=== PATIENT | male | born 1990 | race Caucasian/White ===

== ENCOUNTER 2023-10-12 17:46 | Emergency (ER) | payer BC ==
--- NOTE | 2023-10-12 18:00 | ED ---
General Adult HPI - General Stated complaint: Nose bleed Time Seen by Provider: 10/12/23 18:00 - History of Present Illness Initial comments: 33-year-old male presents to the ED with a chief complaint of epistaxis. Patient reports onset 40 minutes prior to arrival. No trauma. Patient is not on any blood thinners. No lightheadedness or dizziness. No other complaints at this time. - Related Data Allergies Allergy/AdvReac Type Severity Reaction Status Date / Time bacitracin Allergy Rash/Hives Verified 10/12/23 18:02 [From Neosporin ([id number])] neomycin Allergy Rash/Hives Verified 10/12/23 18:02 [From Neosporin ([id number])] polymyxin B Allergy Rash/Hives Verified 10/12/23 18:02 [From Neosporin ([id number])] Review of Systems ROS Statement: Those systems with pertinent positive or pertinent negative responses have been documented in the HPI. ROS Other: All systems not noted in ROS Statement are negative. General Exam - General Exam Comments Initial Comments: Visual Physical Exam Vital signs reviewed General: Well-appearing, nontoxic, no acute distress. Head: Normocephalic, atraumatic Eyes: PERRLA, EOMI ENT: Airway patent Chest: Nonlabored breathing Skin: No visual rash, normal skin tone Neuro: Alert and oriented 3 Musculoskeletal: No gross abnormalities General appearance: alert, in no apparent distress Eye exam: Present: normal appearance ENT exam: Present: other (Dried blood of the right nare. No active bleeding.) Neck exam: Present: normal inspection Respiratory exam: Present: normal lung sounds bilaterally Cardiovascular Exam: Present: regular rate, normal rhythm GI/Abdominal exam: Present: soft Neurological exam: Present: alert, oriented X3 Skin exam: Present: warm, dry Course Vital Signs 10/12/23 10/12/23 18:00 18:09 Temperature 98.2 F Pulse Rate 100 105 H Respiratory 20 Rate Blood Pressure 145/103 144/83 O2 Sat by Pulse 98 Oximetry Medical Decision Making - Medical Decision Making Quicknote portion performed. Signed Paulie Garber PA-C Was pt. sent in by a medical professional or institution (CHARISSE Arreguin, RETAIL MANAGER [employer], urgent care, hospital, or intermediate...) When possible be specific @ -No Did you speak to anyone other than the patient for history (EMS, parent, family, police, friend...)? What history was obtained from this source @ -No Did you review nursing and triage notes (agree or disagree)? Why? @ -I reviewed and agree with nursing and triage notes Were old charts reviewed (outside hosp., previous admission, EMS record, old EKG, old radiological studies, urgent care reports/EKG's, intermediate records)? Report findings @ -No old charts were reviewed Differential Diagnosis (chest pain, altered mental status, abdominal pain women, abdominal pain men, vaginal bleeding, weakness, fever, dyspnea, syncope, headache, dizziness, GI bleed, back pain, seizure, CVA, palpatations, mental health, musculoskeletal)? @ -Not applicable EKG interpreted by me (3pts min.). @ -None X-rays interpreted by me (1pt min.). @ -None done CT interpreted by me (1pt min.). @ -None done U/S interpreted by me (1pt. min.). @ -None done What testing was considered but not performed or refused? (CT, X-rays, U/S, labs)? Why? @ -None What meds were considered but not given or refused? Why? @ -None Did you discuss the management of the patient with other professionals (professionals i.e. , PA, RETAIL MANAGER [employer], lab, RT, psych nurse, social service director, stockholder, teacher, retail loss prevention officer, shelter case manager)? Give summary @ -No Was smoking cessation discussed for >3mins.? @ -No Was critical care preformed (if so, how long)? @ -No Were there social determinants of health that impacted care today? How? (Homelessness, low income, unemployed, alcoholism, drug addiction, transportation, low edu. Level, literacy, decrease access to med. care, shelter, rehab)? @ -No Was there de-escalation of care discussed even if they declined (Discuss DNR or withdrawal of care, Hospice)? DNR status @ -No What co-morbidities impacted this encounter? (DM, HTN, Smoking, COPD, CAD, Cancer, CVA, ARF, Chemo, Hep., AIDS, mental health diagnosis, sleep apnea, mor bid obesity)? @ -None Was patient admitted / discharged? Hospital course, mention meds given and route, prescriptions, significant lab abnormalities, going to OR and other pertinent info. @ -Discharge Patient initially seen by myself in triage. 33-year-old male presented to the ED with a chief complaint of epistaxis. No trauma. Does report history of nosebleeds. Not on any blood thinners. I saw the patient in triage and at that time he did have active bleeding from the right nostril. On exam, bleed did appear anterior in nature. Nose clamp was applied. After continuous trial without nose clamp for an hour, no recurrence of epistaxis. At this time vital signs stable afebrile. Discharged home in stable condition. Discussed return precautions with patient who verbalized agreement. Undiagnosed new problem with uncertain prognosis? @ -No Drug Therapy requiring intensive monitoring for toxicity (Heparin, Nitro, Insulin, Cardizem)? @ -No Were any procedures done? @ -No Diagnosis/symptom? @ -Epistaxis, now resolved Acute, or Chronic, or Acute on Chronic? @ -Acute Uncomplicated (without systemic symptoms) or Complicated (systemic symptoms)? @ -Uncomplicated Side effects of treatment? @ -No Exacerbation, Progression, or Severe Exacerbation? @ -No Poses a threat to life or bodily function? How? (Chest pain, [place], [place], pneumonia, PE, COPD, DKA, ARF, appy, cholecystitis, CVA, Diverticulitis, Homicidal, Suicidal, threat to staff... and all critical care pts) @ -No Disposition Clinical Impression: Epistaxis Disposition: HOME SELF-CARE Condition: Good Instructions (If sedation given, give patient instructions): Nosebleed (ED) Additional Instructions: Please return to the Emergency Department if symptoms worsen or any other concerns. Follow-up with your primary care provider. Please do not manually remove the clot. Avoid picking at your nose. Is patient prescribed a controlled substance at d/c from ED?: No Referrals: None,Stated [Primary Care Provider] - 1-2 days Time of Disposition: 19:21
[2023-10-12 18:25] VITALS: TEMP 98.2
[2023-10-12 19:57] VITALS: BP 133/79; PULSE 82; RESP 18
== END 2023-10-12 19:36 | disposition home or self-care (01) ==
LOC: EC 17:46
DX: R04.0 Epistaxis (principal); Z88.1 Allergy status to other antibiotic agents
CPT/HCPCS: 99283

== ENCOUNTER → 2023-12-07 | Outpatient (CLI) | payer BC ==
--- NOTE | 2023-12-07 11:11 | CA ---
Transthoracic Echo Report Name: Daniel Cunningham Age: 33 Gender: M : 1990 Exam Date: 12/07/2023 09:31 Exam Location: [facility] Ht (in): 67 Wt (lb): 185 Ordering Physician: Feliciano Ceja MD Attending/Referring Phys: [id number] Wong Panelbeater Lorenza Oliveros, SUREKHA Procedure CPT: Indications: G45.9 Cardiac Hx: Technical Quality: Fair Contrast 1: Total Dose (mL): Contrast 2: Total Dose (mL): MEASUREMENTS (Male / Female) Normal Values 2D ECHO LV Diastolic Diameter PLAX 4.9 cm 4.2 - 5.9 / 3.9 - 5.3 cm LV Systolic Diameter PLAX 2.7 cm IVS Diastolic Thickness 1.2 cm 0.6 - 1.0 / 0.6 - 0.9 cm LVPW Diastolic Thickness 1.2 cm 0.6 - 1.0 / 0.6 - 0.9 cm LV Relative Wall Thickness 0.5 RV Internal Dim ED PLAX 3.5 cm LA Volume 63.9 cm??? 18 - 58 / 22 - 52 cm??? LA Volume Index 31.7 cm???/m??? 16 - 28 cm???/m??? M-MODE Aortic Root Diameter MM 3.4 cm LA Systolic Diameter MM 3.1 cm LA Ao Ratio MM 0.9 AV Cusp Separation MM 2.6 cm DOPPLER AV Peak Velocity 141.1 cm/s AV Peak Gradient 8.0 mmHg AV Mean Velocity 104.3 cm/s AV Mean Gradient 4.7 mmHg AV Velocity Time Integral 30.2 cm AI Peak Velocity 429.2 cm/s AI Peak Gradient 73.7 mmHg AI Pressure Half Time 427.4 ms LVOT Peak Velocity 88.6 cm/s LVOT Peak Gradient 3.1 mmHg LVOT Velocity Time Integral 18.6 cm MV Area PHT 4.1 cm??? Mitral E Point Velocity 71.5 cm/s Mitral A Point Velocity 43.5 cm/s Mitral E to A Ratio 1.6 MV Deceleration Time 186.1 ms MV E' Velocity 5.7 cm/s Mitral E to MV E' Ratio 12.5 TR Peak Velocity 196.3 cm/s TR Peak Gradient 15.4 mmHg Right Ventricular Systolic Press 19.9 mmHg FINDINGS Left Ventricle Mildly increased left ventricular wall thickness. Left ventricular cavity size normal. Normal left ventricular systolic function with no obvious regional wall motion abnormalities. Left ventricular ejection fraction is estimated at 55-60 %. Grade 1 diastolic dysfunction. Right Ventricle Normal right ventricular size and function. Right ventricular systolic pressure within normal limits. Right Atrium Normal right atrial size. Left Atrium Mildly increased left atrial volume. Mitral Valve Structurally normal mitral valve. No mitral stenosis, regurgitation or prolapse. Aortic Valve Bicuspid aortic valve. No aortic stenosis. Moderate aortic regurgitation. Eccentric aortic regurgitation jet directed at the mitral valve. Tricuspid Valve Structurally normal tricuspid valve. Mild tricuspid regurgitation. Pulmonic Valve Structurally normal pulmonic valve. Trace pulmonic regurgitation. Pericardium No pericardial effusion. Aorta Normal size aortic root and proximal ascending aorta. CONCLUSIONS Normal LV systolic function. Impaired relaxation of the LV or diastole dysfunction stage I Normal right ventricular dimension and systolic function Normal pulmonary artery systolic pressure Bicuspid aortic valve with fusion of the right and left coronary cusps and evidence of moderate aortic insufficiency Normal aortic root and proximal ascending aorta Previewed by: Dr. Diego Powell MD (Electronically Signed) Final Date: 07 Dec 2023 11:10
--- NOTE | 2023-12-07 11:31 | CA ---
Stress Echo Report Daniel Cunningham Age: 33 Gender: M : 1990 Exam Date: 12/07/2023 10:27 Exam Location: [facility] Ht (in): 67 Wt (lb): 185 Ordering Physician: Feliciano Ceja MD Referring Physician: Marcial FRANK Development Officer: AFTAB Technologist Procedure CPT: Indication: G45.9 ICD-9 Codes: Rhythm: Patient History: Cardiac Medications: NONE Medications in past 24 hours: Contrast: N/A Stress Results Protocol: Tu Total dose(mL): NA Exercise Duration (min:sec): 12:[address] Depression (mm): Angina Score: Lance Score: METS: 12.1 Resting HR: 75 Resting BP: 140 / 93 Peak HR: 173 Peak BP: 182 / 90 Max Predicted HR: 186 93 % Max Predicted HR Target HR: 158 Double Product: [id number] Stress Summary: BP Response: Reason for Termination: Reached target heart rate or work-load Cardiac Symptoms: NO SYMPTOMS ECG Analysis Resting ECG: Stress ECG: Arrhythmia: Echo Analysis Resting Echo: Peak Echo Analysis: MEASUREMENTS (Male/Female) Normal Values CONCLUSIONS Excellent exercise tolerance Normal electrocardiogram and echocardiogram in response to exercise Dr. Diego Powell MD (Electronically Signed) Final Date: 07 Dec 2023 11:30
== END | disposition home or self-care (01) ==
LOC: RADNMMAIN 07:14
PROVIDERS: ATTEND Family Medicine
DX: I51.89 Other ill-defined heart diseases (principal); Q23.1 Congenital insufficiency of aortic valve; G45.9 Transient cerebral ischemic attack, unspecified; R94.31 Abnormal electrocardiogram [ECG] [EKG]
CPT/HCPCS: 93306; 93351

== ENCOUNTER → 2023-12-07 | Outpatient (CLI) | payer BC ==
--- NOTE | 2023-12-07 09:16 | US ---
EXAMINATION TYPE: US carotid duplex BILAT DATE OF EXAM: 12/07/2023 COMPARISON: NONE CLINICAL INDICATION: Male, 33 years old with history of G45.9 TRANSIENT CEREBRAL ISCHEMIC ATTACK, UNS PECIF; TIA TECHNIQUE: Carotid duplex ultrasound examination. Indirect Doppler criteria was utilized. FINDINGS: EXAM MEASUREMENTS: RIGHT: Peak Systolic Velocity (PSV) cm/sec ----- Right CCA: 90.4 ----- Right ICA: 105 ----- Right ECA: 89.1 ICA/CCA ratio: 1.16 RIGHT: End Diastole cm/sec ----- Right CCA: 26.1 ----- Right ICA: 49.9 ----- Right ECA: 27.9 LEFT: Peak Systolic Velocity (PSV) cm/sec ----- Left CCA: 111 ----- Left ICA: 132 ----- Left ECA: 100 ICA/CCA ratio: 1.19 LEFT: End Diastole cm/sec ----- Left CCA: 41.5 ----- Left ICA: 39.7 ----- Left ECA: 23.2 VERTEBRALS (direction of flow): Right Vertebral: Antegrade Left Vertebral: Antegrade Rhythm: Normal ELECTRIC CONTAINER TESTER NOTES: Intimal thickening seen bilaterally. Elevated velocity within left mid ICA. IMPRESSION: 1. Less than 50% stenosis of the right carotid bifurcation. 2. 50-69% stenosis of the left carotid bifurcation. Criteria for Assigning % of Stenosis / Diameter reduction (Estimation based on the indirect measurements of the internal carotid artery velocities (ICA PSV). 1. Normal (no stenosis)=ICA PSV < 125 cm/s: ratio < 2.0: ICA EDV<40 cm/s. 2. Less than 50% stenosis=ICA PSV < 125 cm/s: ratio < 2.0: ICA EDV<40 cm/s. 3. 50 to 69% stenosis=ICA PSV of 125 to 230 cm/s: ration 2.0 ? 4.0: ICA EDV 40-100 cm/s. 4. Greater than 70% stenosis to near occlusion= ICA PSV > 230 cm/s: ratio > 4.0: ICA EDV > 100 cm/s. 5. Near occlusion= ICA PSV velocities may be low or undetectable: variable ratio and ICA EDV. 6. Total occlusion=unable to detect flow.
== END | disposition home or self-care (01) ==
LOC: RADUSWWP 07:10
PROVIDERS: ATTEND Family Medicine
DX: I65.23 Occlusion and stenosis of bilateral carotid arteries (principal)
CPT/HCPCS: 93880

== ENCOUNTER 2024-01-18 08:49 | Day surgery (SDC) | payer BC ==
[2024-01-14 13:45] VITALS: BMI 29.0
[2024-01-18] MEDS ORDERED: SODIUM CHLORIDE 0.9% 500 ML 500 ML IV SCH (09:15)
[2024-01-18] MEDS: SODIUM CHLORIDE 0.9% 500 ML 500 ML IV ONE (09:15)
[2024-01-18] MEDS: SODIUM CHLORIDE 0.9% 1,000 ML BAG IV STA (09:23)
[2024-01-18 09:27] VITALS: TEMP 97.8
[2024-01-18] MEDS ORDERED: fentaNYL (PF) 50 MCG/ML 2 ML AMP ONE (10:07)
[2024-01-18] MEDS: BENZOCAINE SPRAY 1 CAN TOPICAL ONE (10:18)
[2024-01-18] MEDS: MIDAZOLAM 2 MG/2 ML VIAL IVP ONE (10:20)
[2024-01-18] MEDS: fentaNYL (PF) 50 MCG/ML 2 ML AMP IVP ONE (10:20)
--- NOTE | 2024-01-18 10:33 | P.PCN ---
Date of Procedure: 01/18/24 Operative Findings: TRANSESOPHAGEAL ECHOCARDIOGRAM CONE CHOCOLATE DIPPER: JEFERSON WILKES MD, RPVI INDICATION: Rule out PFO SEDATION: Conscious sedation COMPLICATION: None LEVEL OF SEDATION Moderate with sedation length of 15 minutes PROCEDURE DESCRIPTION: After obtaining an informed consent, the patient was brought to transesophageal echocardiogram room. Pulse oximetry and heart monitors were attached to the patient. The patient throat was sprayed using lidocaine. The patient was turned into le ft lateral position. After that a bite guard was placed. After an appropriate conscious sedation was initiated, the transesophageal echocardiogram was advanced through a bite guard into the mid esophagus. A 2-D echocardiogram images, color Doppler images, continuous wave images, pulse-wave images, of various cardiac structure were performed. After that the transesophageal echocardiogram probe was advanced into the stomach and fixed to obtain transgastric view was. The probe was brought into the mid esophagus. Inter-atrial septum was interrogated using 2D images, color Doppler images, and then contrast study. After that transesophageal echocardiogram was withdrawn out and upon withdrawing the descending thoracic aorta all the way up to the arch was evaluated. CONCLUSION: 1. Normal biventricular dimension and systolic function 2. Intact interatrial septum and intact left atrial abdomen 3. Bicuspid aortic valve with fusion of the right and left coronary cusp and mild to moderate aortic insufficiency 4. Normal mitral valve leaflets with mild MR 5. Normal tricuspid valve and pulmonic 6. No evidence of pericardial effusion
[2024-01-18 10:36] VITALS: RESP 16
[2024-01-18 11:27] VITALS: BP 114/62; PULSE 60
== END 2024-01-18 11:36 | disposition home or self-care (01) ==
LOC: CATHCVL 08:49
PROVIDERS: ATTEND Internal Medicine Interventional Cardiology
DX: I35.1 Nonrheumatic aortic (valve) insufficiency (principal); I10 Essential (primary) hypertension; E78.5 Hyperlipidemia, unspecified; I38 Endocarditis, valve unspecified; I65.23 Occlusion and stenosis of bilateral carotid arteries; Z86.73 Personal history of transient ischemic attack (TIA), and cerebral infarction without residual deficits; Z82.49 Family history of ischemic heart disease and other diseases of the circulatory system; Z79.82 Long term (current) use of aspirin; Z79.899 Other long term (current) drug therapy
CPT/HCPCS: 93312; 93320; 93325; J2250; J3010